=== PATIENT | female | born 1955 | race Caucasian/White ===

== ENCOUNTER 2018-09-14 11:37 | Inpatient (IN) | payer OTHER ==
[~2018-09-14] VITALS: Ht 167.6 cm; Wt 84.6 kg
[~2018-09-14 11:37] MED LIST: ASPI81TA52 PO; CARV3.1260 PO; CIPR500T4 PO; FAMO-96 PO; LEVO100T82 PO; OMEP20CA16 PO; OXCA300T41 PO; SIMV20TA PO; TEMA15CA6 PO; TRAZ300T15 PO
[2018-09-14] MEDS ORDERED: morphine 4 MG/ML VIAL IV STA (11:45)
[2018-09-14] MEDS ORDERED: ALBUTEROL/IPRATROPIUM (NEB) 3 ML AMP HHN STA (11:45)
[2018-09-14] MEDS ORDERED: METHYLPREDNISOLONE 125 MG INJ IV ONE ×2 (12:00→17:30)
[2018-09-14] MEDS ORDERED: LEVO88TA42 PO (12:22)
[2018-09-14] MEDS ORDERED: CARV3.1260 PO (12:22)
[2018-09-14] MEDS ORDERED: OMEP20CA16 PO (12:23)
[2018-09-14] MEDS ORDERED: SIMV20TA PO (12:23)
[2018-09-14] MEDS ORDERED: TRAZ150T65 PO (12:24)
[2018-09-14] MEDS ORDERED: ESCI10TA PO (12:28)
[2018-09-14] MEDS ORDERED: AMIT75TA2 PO (12:30)
[2018-09-14] MEDS ORDERED: GABA300C16 PO (12:31)
[2018-09-14] MEDS ORDERED: HYDROmorphONE 0.5 MG/0.5 ML SYG IV STA (12:49)
[2018-09-14] MEDS ORDERED: IOHEXOL 300MG/ML 150 ML BTL ONE (13:12)
[2018-09-14] MEDS ORDERED: SOD CHLORIDE 0.9% 100 ML ONE (13:12)
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
[2018-09-14] MEDS ORDERED: ALBUTEROL 0.083% (NEB) 2.5 MG/3 ML AMP HHN PRN (17:30)
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
[2018-09-14] MEDS ORDERED: GUAIFENESIN/DM 5ML CUP PO PRN (18:00)
[2018-09-14] MEDS ORDERED: traMADol 50 MG TAB PO PRN (18:00)
[2018-09-14] MEDS: LEVOFLOXACIN 750MG/D5W (PMX) 150 ML IVPB SCH (18:09)
[2018-09-14 18:52] VITALS: BP 160/81; PULSE 80; RESP 18
[2018-09-14] MEDS: HYDROmorphONE 0.5 MG/0.5 ML SYG IV PRN (19:10)
[2018-09-14 19:37] VITALS: BP 133/71; PULSE 79; RESP 18
[2018-09-14 20:07] VITALS: Ht 167.6 cm; Wt 84.6 kg
[2018-09-14] MEDS ORDERED: traZODone 50 MG TAB PO SCH (21:00)
[2018-09-14] MEDS: ATORVASTATIN 10 MG TAB PO SCH (21:36)
[2018-09-14] MEDS: BACLOFEN 10 MG TAB PO SCH (21:36)
[2018-09-14] MEDS: GABAPENTIN 300 MG CAP PO SCH (21:36)
[2018-09-14] MEDS: METHYLPREDNISOLONE 40 MG INJ IV SCH (21:38)
[2018-09-14] MEDS: NICOTINE (21 MG/24 HR) PATCH TRANSDERM SCH (21:41)
[2018-09-14] MEDS: BUDESONIDE (NEB) 0.5MG/2ML AMP HHN SCH (21:47)
[2018-09-14] MEDS: ALBUTEROL/IPRATROPIUM (NEB) 3 ML AMP HHN SCH (21:47)
[2018-09-14] MEDS: AMITRIPTYLINE 50 MG TAB PO SCH (22:32)
[2018-09-15 01:03] VITALS: BP 125/73; PULSE 68; RESP 18
[2018-09-15] MEDS: PANTOPRAZOLE (EC) 40 MG TAB PO SCH (05:19)
[2018-09-15] MEDS: METHYLPREDNISOLONE 40 MG INJ IV SCH ×2 (05:20→20:59)
[2018-09-15] MEDS: LEVOTHYROXINE 88 MCG TAB PO SCH (06:29)
[2018-09-15 07:41] VITALS: BP 140/69; PULSE 69; RESP 18
[2018-09-15] MEDS: BACLOFEN 10 MG TAB PO SCH ×3 (08:14→20:56)
[2018-09-15] MEDS: ESCITALOPRAM 10 MG TAB PO SCH (08:14)
[2018-09-15] MEDS: HYDROmorphONE 0.5 MG/0.5 ML SYG IV PRN ×3 (08:15→20:18)
[2018-09-15] MEDS: GABAPENTIN 300 MG CAP PO SCH ×3 (08:15→20:58)
[2018-09-15] MEDS: NICOTINE (21 MG/24 HR) PATCH TRANSDERM SCH (08:21)
[2018-09-15] MEDS: ALBUTEROL/IPRATROPIUM (NEB) 3 ML AMP HHN SCH ×3 (08:34→20:08)
[2018-09-15] MEDS: BUDESONIDE (NEB) 0.5MG/2ML AMP HHN SCH ×3 (08:35→20:21)
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
[2018-09-15] MEDS ORDERED: BISACODYL 10 MG SUPP PR PRN (12:30)
[2018-09-15] MEDS ORDERED: POLYETHYLENE GLYCOL 17 GM PACKET PO PRN (12:30)
[2018-09-15] MEDS ORDERED: SENNA/DOCUSATE NA (8.6MG/50MG) TAB PO PRN (12:30)
[2018-09-15 15:37] VITALS: BP 124/72; PULSE 66; RESP 18
[2018-09-15] MEDS: LEVOFLOXACIN 750MG/D5W (PMX) 150 ML IVPB SCH (18:28)
[2018-09-15 20:17] VITALS: BP 181/77; PULSE 83; RESP 18
[2018-09-15] MEDS: AMITRIPTYLINE 50 MG TAB PO SCH (20:57)
[2018-09-15] MEDS: ATORVASTATIN 10 MG TAB PO SCH (20:58)
[2018-09-15 21:00] VITALS: BP 125/76; PULSE 66; RESP 18
[2018-09-15] MEDS ORDERED: traZODone 100 MG TAB PO SCH (22:00)
[2018-09-16 02:00] VITALS: BP 130/78; PULSE 60; RESP 18
[2018-09-16] MEDS: HYDROmorphONE 0.5 MG/0.5 ML SYG IV PRN ×2 (04:20→15:45)
[2018-09-16] MEDS: PANTOPRAZOLE (EC) 40 MG TAB PO SCH (06:33)
[2018-09-16] MEDS: LEVOTHYROXINE 88 MCG TAB PO SCH (06:33)
[2018-09-16 07:28] VITALS: BP 145/74; PULSE 72; RESP 16
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
[2018-09-16] MEDS: BACLOFEN 10 MG TAB PO SCH ×2 (09:03→12:21)
[2018-09-16] MEDS: ESCITALOPRAM 10 MG TAB PO SCH (09:03)
[2018-09-16] MEDS: NICOTINE (21 MG/24 HR) PATCH TRANSDERM SCH (09:03)
[2018-09-16] MEDS: GABAPENTIN 300 MG CAP PO SCH ×2 (09:03→12:21)
[2018-09-16] MEDS: METHYLPREDNISOLONE 40 MG INJ IV SCH (09:03)
[2018-09-16] MEDS: ALBUTEROL/IPRATROPIUM (NEB) 3 ML AMP HHN SCH ×2 (09:08→14:00)
[2018-09-16] MEDS: BUDESONIDE (NEB) 0.5MG/2ML AMP HHN SCH (09:09)
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
[2018-09-16] MEDS ORDERED: LACTULOSE 30ML CUP PO ONE (12:00)
[2018-09-16] MEDS ORDERED: NICO-546 TRANSDERM (12:50)
[2018-09-16] MEDS ORDERED: HYDR-4011 PO (12:50)
[2018-09-16] MEDS ORDERED: BACL10TA PO (12:50)
[2018-09-16] MEDS ORDERED: PRED20TA PO (12:50)
[2018-09-16] MEDS ORDERED: POLY17PO6 PO (12:50)
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
[2018-09-16] MEDS ORDERED: LEVOFLOXACIN 500 MG TAB PO SCH (13:00)
[2018-09-16] MEDS ORDERED: HYDROCODONE/APAP (5/325) TAB PO PRN (13:00)
[2018-09-16 13:51] VITALS: BP 141/78; PULSE 69; RESP 17
[2018-09-16] MEDS ORDERED: MINERAL OIL 133 ML ENEMA PR ONE (14:00)
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
[2018-09-17] MEDS ORDERED: predniSONE 20 MG TAB PO SCH (09:00)
== END 2018-09-16 16:55 | disposition home or self-care (01) | DRG 191 ==
LOC: E/R 11:37 → 2NE 17:02
PROVIDERS: ADMIT Internal Medicine; ATTEND Internal Medicine
DX: J44.1 Chronic obstructive pulmonary disease with (acute) exacerbation (principal); N17.9 Acute kidney failure, unspecified; S20.219A Contusion of unspecified front wall of thorax, initial encounter; S30.1XXA Contusion of abdominal wall, initial encounter; R07.89 Other chest pain; E03.9 Hypothyroidism, unspecified; Z72.0 Tobacco use; F39 Unspecified mood [affective] disorder; Z95.0 Presence of cardiac pacemaker; K59.00 Constipation, unspecified; V89.2XXA Person injured in unspecified motor-vehicle accident, traffic, initial encounter; R09.02 Hypoxemia
CPT/HCPCS: 71045; 71260; 74177; 80048; 80069; 80076; 83735; 85025; 85610; 85730; 94640; 94664; 96374; 96375; J1170; J1956; J2270; J2920; J2930; J7512; Q9967